=== PATIENT | male | born 1985 | race Caucasian/White ===

== ENCOUNTER 2016-02-07 03:24 | Emergency (ER) | payer BC ==
[2016-02-07 04:01] VITALS: BP 142/78; PULSE 127; TEMP 97.8; BMI 20.3
--- NOTE | 2016-02-07 04:27 | EDPRACDOC ---
- General Information Chief Complaint: Flu-Like Symptoms Stated Complaint: SHOB Time Seen by Provider: 02/07/16 04:14 Information Source: Patient Mode Of Arrival: Car Home Medications: Home Medications Hydrocodone Bit/Acetaminophen [Lortab 5-500 Tablet] 1 - 2 tab PO Q4H PRN #14 tab 10/20/12 No Home Medications 0 NA DIR 10/20/12 Penicillin [Pen Vee K] 500 mg PO QID #28 tab 10/20/12 Allergies/Adverse Reactions: Allergies Allergy/AdvReac Type Severity Reaction Status Date / Time No Known Allergies Allergy Verified 10/20/12 05:52 - History of Present Illness HPI: PT PRESENTS WITH NOW RESOLVED DYSPNEA WITH CHEST PAIN AFTER SMOKING MARIJUANA. Shortness of Breath: Moderate Relevant History: Reports: None Cough: Reports: Non-productive SOB Improves with: Reports: Rest Associated Signs and symptoms: Reports: Cough. Denies: Fever, Nasal Symptoms ED Past Medical History - History Reviewed Yes Nurses notes reviewed and agree except as marked No Past Medical History: Yes Patient has no past medical history - Patient Medical History Psychological History: Denies: Depression - Social Medical History Smoking Status: Current some day smoker Social History: Reports: Marijuana Use Lives In: Home EDM Review of Systems - Review of Systems ROS Negative Except as Marked: Yes All systems reviewed and were negative except as marked Constitutional: Fatigue. negative: Fever Respiratory: Cough, Shortness of Breath Cardiovascular: Chest Pain - Physical Exam Constitutional: Alert Oriented to: Time, Person, Place Last recorded Vital Signs: Last Vital Signs Temp 97.8 F 02/07/16 03:58 Pulse 127 H 02/07/16 03:58 Resp 20 02/07/16 03:58 BP 142/78 02/07/16 03:58 Pulse Ox 100 02/07/16 03:58 Oxygen Pulse Oxygen Saturation 100 O2 Device Room Air Oxygen Flow Rate Fraction of Inspired Oxygen ( FIO2) - HEENT Head: negative: Deformity, Laceration Eye Exam: negative: Conjunctival Injection, Pale Conjunctiva Oropharynx: negative: Membranes Dry Nose: negative: Congestion, Discharge Neck: negative: Limited ROM - Respiratory/Cardiovascular Respiratory: Normal - CTA. negative: Accessory Muscle Use, Diminished, Tachypnea Cardiovascular: negative: Bradycardia, Tachycardia, Irregular - Integumentary Skin: Warm, Dry. negative: Rash - Neurologic Memory Impaired: Normal Motor Function: Normal Mood Description: Anxious, Appropriate Thought: Coherent Perception: Normal Decision Time to Discharge: 04:27 - Departure Yes I personally saw and evaluated the patient. Disposition: Home Condition: Stable Final Diagnosis: Cough Dyspnea Qualifiers: Dyspnea type: unspecified Qualified Code(s): R06.00 - Dyspnea, unspecified Instructions: Dyspnea (ED) Education/Counseling Given To: Patient Education/Counseling Given Regarding: Diagnosis, Treatment, Prognosis, Follow Up Referrals: None,No Provider [Primary Care Provider] - Call for Appointment Additional Instructions: AVOID FURTHER SMOKE EXPOSURE.
== END 2016-02-07 04:38 | disposition home or self-care (01) ==
LOC: ED 03:24
DX: R05 Cough (principal); R06.00 Dyspnea, unspecified
CPT/HCPCS: 99283